=== PATIENT | male | born 1970 | race Two or more races ===

== ENCOUNTER 2017-02-17 17:00 | Inpatient (IN) | payer OTHER ==
[~2017-02-17] VITALS: Ht 185.4 cm; Wt 132.0 kg
[2017-02-17] MEDS ORDERED: SODIUM CHLORIDE 0.9% 1,000 ML IV ONE (17:24)
[2017-02-17] MEDS ORDERED: PANTOPRAZOLE 40 MG/10 ML VIAL IV ONE (17:30)
[2017-02-17 17:47] LABS: Basophils # (auto) 0.1 uL; Basophils % (auto) 1.2 % (0.0-2.0); Eosinophils # (auto) 0.4 uL; Hemoglobin 14.7 g/dL (13.5-17.5); Lymphocytes # (auto) 1.9 uL; Lymphocytes % (auto) 24.8 % (10.0-50.0); Mean Corpuscular Hemoglobin 31.5 pg (28.0-32.0); Mean Corpuscular Hgb Conc. 34.2 g/dL (32.0-36.0); Mean Corpuscular Volume 91.8 fL (80.0-100.0); Monocytes # (auto) 0.6 uL; Monocytes % (auto) 7.6 % (0.0-12.0); Neutrophils # (auto) 4.7 uL; Neutrophils % (auto) 61.4 % (37.0-80.0); Nucleated Red Blood Cells % 0.1 %; Platelet Count (auto) 275 10^3/uL (140-450); Red Blood Cells 4.68 10^6/uL (4.5-5.90); Red Cell Distribution Width 12.3 % (11.8-14.3); White Blood Cell 7.6 10^3/uL (4.4-10.8)
[2017-02-17 18:09] LABS: Alanine Aminotransferase 62 U/L (16-61); Albumin 3.4 g/dL (3.4-5.0); Alkaline Phosphatase 132 U/L (45-117); Anion Gap 9 (5-15); Aspartate Aminotransferase 30 U/L (15-37); Bilirubin, Total 0.2 mg/dL (0.2-1.0); Blood Urea Nitrogen 16 mg/dL (7-18); Calcium 8.5 mg/dL (8.5-10.1); Carbon Dioxide 25 mmol/L (21-32); Chloride 105 mmol/L (98-107); GFR African American 126 mL/min; GFR Non-African American 104 mL/min; Glucose 107 mg/dL (74-106); Magnesium 2.3 mg/dL (1.6-2.6); Potassium 3.8 mmol/L (3.5-5.1); Sodium 139 mmol/L (136-145); Total Protein 7.8 g/dL (6.4-8.2)
[2017-02-17 18:22] LABS: INR 0.92 (0.9-1.15); Partial Thromboplastin Time 25.9 sec (22.64-33.71)
[2017-02-17 22:45] VITALS: BP 104/68
[2017-02-17] MEDS ORDERED: MORPHINE SULFATE 10 MG/ML INJ 1ML SDV IV PRN (22:45)
[2017-02-17] MEDS ORDERED: NITROGLYCERIN 0.4 MG SL TAB SL PRN (22:45)
[2017-02-17] MEDS ORDERED: ACETAMINOPHEN 500 MG TAB PO PRN (22:45)
[2017-02-17] MEDS ORDERED: ONDANSETRON HCL 4 MG/2 ML VIAL IV PRN (22:45)
[2017-02-17 23:19] LABS: Cholesterol 203 mg/dL (< 200); Creatine Kinase IFCC 192 U/L (39-308); HDL Cholesterol 25 mg/dL (40-59); Triglycerides 630 mg/dL (< 150)
[2017-02-18] MEDS: HYDROcodone-ACET 5/325MG TAB PO PRN ×2 (00:20→05:36)
[2017-02-18 05:04] VITALS: BP 105/69
[2017-02-18 06:11] LABS: Basophils # (auto) 0.1 uL; Basophils % (auto) 0.9 % (0.0-2.0); Eosinophils # (auto) 0.3 uL; Eosinophils % (auto) 4.5 % (0.0-7.0); Hematocrit 40.2 % (41.0-53.0); Hemoglobin 13.6 g/dL (13.5-17.5); Lymphocytes # (auto) 1.9 uL; Lymphocytes % (auto) 30.2 % (10.0-50.0); Mean Corpuscular Hemoglobin 31.1 pg (28.0-32.0); Mean Corpuscular Hgb Conc. 33.9 g/dL (32.0-36.0); Mean Corpuscular Volume 91.7 fL (80.0-100.0); Monocytes # (auto) 0.6 uL; Monocytes % (auto) 9.3 % (0.0-12.0); Neutrophils # (auto) 3.4 uL; Neutrophils % (auto) 55.1 % (37.0-80.0); Nucleated Red Blood Cells % 0.1 %; Platelet Count (auto) 254 10^3/uL (140-450); Red Blood Cells 4.38 10^6/uL (4.5-5.90); Red Cell Distribution Width 12.5 % (11.8-14.3); White Blood Cell 6.2 10^3/uL (4.4-10.8)
[2017-02-18 06:25] LABS: Anion Gap 10 (5-15); BUN/Creatinine Ratio 20.5; Blood Urea Nitrogen 16 mg/dL (7-18); Calcium 8.4 mg/dL (8.5-10.1); Carbon Dioxide 23 mmol/L (21-32); Chloride 110 mmol/L (98-107); GFR African American 137 mL/min; GFR Non-African American 113 mL/min; Glucose 105 mg/dL (74-106); Potassium 3.8 mmol/L (3.5-5.1); Sodium 143 mmol/L (136-145)
[2017-02-18 07:30] VITALS: BP 113/71
[2017-02-18 09:00] VITALS: BP 117/71
[2017-02-18] MEDS: ASPirin-EC 81 mg tab PO SCH (10:36)
[2017-02-18 13:00] VITALS: BP 114/73
[2017-02-18 17:03] VITALS: BP 110/69
[2017-02-18 22:50] VITALS: BP 107/69
[2017-02-19] VITALS (7 sets, daily range): BP systolic 106–128; BP diastolic 62–83
[2017-02-19] MEDS ORDERED: ADENOSINE 111 MG in GIVE UN-DILUTED 0 ML IV ONE (08:45)
[2017-02-19] MEDS: CARISOPRODOL 350 MG TAB PO SCH ×2 (12:52→22:22)
[2017-02-19] MEDS: CELECOXIB 100 MG CAP PO SCH (12:52)
[2017-02-19] MEDS: predniSONE 20 MG TAB PO SCH ×2 (12:52→22:22)
[2017-02-19] MEDS: ASPirin-EC 81 mg tab PO SCH (12:52)
[2017-02-20 04:51] VITALS: BP 118/67
[2017-02-20 09:00] VITALS: BP 117/82
[2017-02-20] MEDS: predniSONE 20 MG TAB PO SCH (10:08)
[2017-02-20] MEDS: CELECOXIB 100 MG CAP PO SCH (10:08)
[2017-02-20] MEDS: ASPirin-EC 81 mg tab PO SCH (10:08)
[2017-02-20] MEDS: CARISOPRODOL 350 MG TAB PO SCH (10:09)
[2017-02-20 12:20] VITALS: BP 117/82
== END 2017-02-20 17:35 | DRG 313 ==
LOC: ER 17:00 → TELE 17:01 → TELE-WESTW 23:38
PROVIDERS: ADMIT Internal Medicine; ATTEND Internal Medicine
DX: R07.89 Other chest pain (principal); E66.9 Obesity, unspecified; F41.9 Anxiety disorder, unspecified; I10 Essential (primary) hypertension; E78.5 Hyperlipidemia, unspecified; Z68.38 Body mass index [BMI] 38.0-38.9, adult; Z90.49 Acquired absence of other specified parts of digestive tract
CPT/HCPCS: 36415; 71010; 71101; 78452; 80048; 80053; 80061; 82550; 83735; 83880; 84484; 85025; 85379; 85610; 85730; 93005; 93017; 93306; 94761; 96361; 96374; C9113; J0153